=== PATIENT | male | born 1995 | race African-American/Black ===

== ENCOUNTER 2021-09-11 13:30 | Emergency (ER) | payer OTHER ==
[~2021-09-11] VITALS: Ht 172.7 cm; Wt 120.0 kg
[2021-09-11] MEDS ORDERED: methylPREDNISolone SOD SUCC 125 MG/2 ML VL IM ONE (14:45)
[2021-09-11] MEDS ORDERED: diphenhdrAMINE HCL 50 MG/1 ML VL IM ONE (14:45)
[2021-09-11] MEDS ORDERED: EPINEPHrine HCL 1 MG/1 ML AMP SC ONE (14:45)
[2021-09-11] MEDS ORDERED: PRED20TA2 PO ×2 (14:57→15:04)
[2021-09-11] MEDS ORDERED: HYDR50CA PO (14:57)
[2021-09-11 15:00] VITALS: BP 137/74
== END 2021-09-11 15:20 | disposition home or self-care (01) ==
LOC: ER 13:30
DX: T78.40XA Allergy, unspecified, initial encounter (principal); Z79.899 Other long term (current) drug therapy; Y92.89 Other specified places as the place of occurrence of the external cause
CPT/HCPCS: 96372; 99284; J0171; J1200; J2930